=== PATIENT | female | born 2000 | race American Indian/Alaskan Native ===

== ENCOUNTER 2022-02-26 22:13 | Emergency (ER) | payer SELFPAY ==
[2022-02-27] MEDS ORDERED: predniSONE 20 MG TAB PO NR (03:25)
[2022-02-27] MEDS ORDERED: ACETAMINOPHEN 500 MG TAB PO NR (03:25)
--- NOTE | 2022-02-27 03:30 | Emergency Department Report ---
- General Chief Complaint: Chest Pain Stated Complaint: SOB/ALLERGIES Source: patient Mode of arrival: Ambulatory Limitations: No Limitations - History of Present Illness Initial Comments: Patient is a nulliparous 21-year-old -Spanish female with a history of asthma and morbid obesity presents to the ED with complaint of acute onset persistent nasal and sinus congestion, frontal sinus pressure, persistent cough with intermittent yellowish-white phlegm and chest tightness with intermittent wheezing for the last 1 week. Patient states that the symptoms have been persistent and especially worse at night when she lays down to sleep. Patient states that she occasionally uses a sisters albuterol inhaler which appeared to help. Patient denies dizziness, syncope, chest pain, nausea and vomiting, diarrhea, dysuria, urinary frequency and urgency, sore throat, headache or back pain. MD Complaint: cough, rhinorrhea, nasal congestion, sinus pain -: Sudden, week(s) (1) Severity: moderate Severity scale (0 -10): 5 Quality: dull, aching Consistency: intermittent Improves With: nothing Worsens With: nothing Context: sick contacts Associated Symptoms: denies other symptoms, rhinorrhea, nasal congestion, cough. denies: fever, chills, diaphoresis, headache, sore throat, stiff neck, chest pain, shortness of breath, abdominal pain, nausea, vomiting, diarrhea, dysuria, rash, confusion, weight loss Treatments Prior to Arrival: "cold medicine" - Related Data Previous Rx's Medication Instructions Recorded Last Taken Type Albuterol Sulfate [Proventil Hfa] 1 - 2 puff IH Q6H PRN #1 inh 02/27/22 Unknown Rx Azithromycin [Zithromax Z-RICHARD] 250 mg PO DAILY #6 tab 02/27/22 Unknown Rx Benzonatate [Tessalon Perles] 100 mg PO Q8HR #30 cap 02/27/22 Unknown Rx Cetirizine HCl [Zyrtec 10mg tab] 10 mg PO DAILY #30 tab 02/27/22 Unknown Rx Ferrous Sulfate [Ferrous Sulfate 324 mg PO DAILY #60 tab 02/27/22 Unknown Rx 324 MG] Ondansetron [Zofran Odt] 4 mg PO Q8HR PRN #20 tab.rapdis 02/27/22 Unknown Rx predniSONE [Deltasone] 40 mg PO QDAY #10 tab 02/27/22 Unknown Rx ED Review of Systems ROS: Stated complaint: SOB/ALLERGIES Other details as noted in HPI Constitutional: denies: chills, fever Eyes: denies: eye pain, eye discharge, vision change ENT: congestion. denies: ear pain, throat pain Respiratory: cough, shortness of breath, wheezing Cardiovascular: denies: chest pain, palpitations Endocrine: no symptoms reported Gastrointestinal: denies: abdominal pain, nausea, diarrhea Genitourinary: denies: urgency, dysuria, discharge Musculoskeletal: denies: back pain, joint swelling, arthralgia Skin: denies: rash, lesions Neurological: denies: headache, weakness, paresthesias Psychiatric: denies: anxiety, depression Hematological/Lymphatic: denies: easy bleeding, easy bruising ED Past Medical Hx - Past Medical History Hx Asthma: Yes - Social History Smoking Status: Never Smoker Substance Use Type: None - Medications Home Medications: Home Medications Medication Instructions Recorded Confirmed Last Taken Type Albuterol Sulfate [Proventil Hfa] 1 - 2 puff IH Q6H PRN #1 inh 02/27/22 Unknown Rx Azithromycin [Zithromax Z-RICHARD] 250 mg PO DAILY #6 tab 02/27/22 Unknown Rx Benzonatate [Tessalon Perles] 100 mg PO Q8HR #30 cap 02/27/22 Unknown Rx Cetirizine HCl [Zyrtec 10mg tab] 10 mg PO DAILY #30 tab 02/27/22 Unknown Rx Ferrous Sulfate [Ferrous Sulfate 324 mg PO DAILY #60 tab 02/27/22 Unknown Rx 324 MG] Ondansetron [Zofran Odt] 4 mg PO Q8HR PRN #20 tab.rapdis 02/27/22 Unknown Rx predniSONE [Deltasone] 40 mg PO QDAY #10 tab 02/27/22 Unknown Rx ED Physical Exam - General Limitations: No Limitations General appearance: alert, in no apparent distress - Head Head exam: Present: atraumatic, normocephalic, normal inspection - Eye Eye exam: Present: normal appearance, PERRL, EOMI Pupils: Present: normal accommodation - ENT ENT exam: Present: normal orophraynx, mucous membranes moist, TM's normal bilaterally, normal external ear exam, other (Grossly congested nasal passages; palpable frontal sinus tenderness) - Neck Neck exam: Present: normal inspection, full ROM. Absent: tenderness - Respiratory Respiratory exam: Present: normal lung sounds bilaterally. Absent: respiratory distress, wheezes, rales, rhonchi, chest wall tenderness, accessory muscle use, decreased breath sounds, prolonged expiratory - Cardiovascular Cardiovascular Exam: Present: regular rate, normal rhythm, normal heart sounds. Absent: systolic murmur, diastolic murmur, rubs, gallop - GI/Abdominal GI/Abdominal exam: Present: soft, normal bowel sounds. Absent: tenderness, guarding, rebound, hyperactive bowel sounds, hypoactive bowel sounds, organomegaly - Extremities Exam Extremities exam: Present: normal inspection, full ROM, normal capillary refill. Absent: tenderness - Back Exam Back exam: Present: normal inspection, full ROM. Absent: tenderness, CVA tenderness (R), CVA tenderness (L), muscle spasm, paraspinal tenderness, vertebral tenderness - Neurological Exam Neurological exam: Present: alert, oriented X3, CN II-XII intact, normal gait, reflexes normal - Psychiatric Psychiatric exam: Present: normal affect, normal mood - Skin Skin exam: Present: warm, dry, intact, normal color. Absent: rash ED Medical Decision Making - Medical Decision Making This is a nulliparous 21-year-old -Spanish female with a history of asthma and morbid obesity presents to the ED with complaint of acute onset persistent nasal and sinus congestion, frontal sinus pressure, persistent cough with intermittent yellowish-white phlegm and chest tightness with intermittent wheezing for the last 1 week. Patient states that the symptoms have been persistent and especially worse at night when she lays down to sleep. Patient states that she occasionally uses a sisters albuterol inhaler which appeared to help. In the ED, patient is alert and oriented x3 and is not in any distress. Patient is hemodynamically stable. Patient was treated for pain and also given oral prednisone 60 mg p.o. x1. Patient was discharged home on medications and advised to follow-up with her primary care physician in 7 to 10 days for reevaluation or return to the ED immediately if symptoms get worse. - Differential Diagnosis URI; bronchitis; rhinitis; asthma; sinusitis; pneumonia Critical care attestation.: If time is entered above; I have spent that time in minutes in the direct care of this critically ill patient, excluding procedure time. ED Disposition Clinical Impression: Acute upper respiratory infection, Acute bronchitis with asthma with acute exacerbation, Acute allergic rhinitis Disposition: HOME / SELF CARE / HOMELESS Is pt being admited?: No Does the pt Need Aspirin: No Condition: Stable Instructions: Upper Respiratory Infection, Adult, [id number], Cough, Adult, [id number], Acute Bronchitis, Adult, [id number], Asthma, Adult, [id number], Allergic Rhinitis, Adult, [id number] Additional Instructions: Take medication with food, drink plenty of fluids and follow-up with your primary care physician in 7 to 10 days for reevaluation. Return to the ED immediately if symptoms get worse. Prescriptions: predniSONE [Deltasone] 40 mg PO QDAY #10 tab Ferrous Sulfate [Ferrous Sulfate 324 MG] 324 mg PO DAILY #60 tab Albuterol Sulfate [Proventil Hfa] 1 - 2 puff IH Q6H PRN #1 inh PRN Reason: Shortness Of Breath Benzonatate [Tessalon Perles] 100 mg PO Q8HR #30 cap Azithromycin [Zithromax Z-RICHARD] 250 mg PO DAILY #6 tab Ondansetron [Zofran Odt] 4 mg PO Q8HR PRN #20 tab.rapdis PRN Reason: Nausea Cetirizine HCl [Zyrtec 10mg tab] 10 mg PO DAILY #30 tab Referrals: [facility] [Provider Group] - 7-10 days Forms: Work/School Release Form(ED) Time of Disposition: 03:31 Print Language: CITIZEN OF [place]
[2022-02-27 04:01] VITALS: BP 151/89
== END 2022-02-27 05:06 | disposition home or self-care (01) ==
LOC: ED 22:13
DX: J06.9 Acute upper respiratory infection, unspecified (principal); J45.901 Unspecified asthma with (acute) exacerbation; J30.9 Allergic rhinitis, unspecified; Z79.899 Other long term (current) drug therapy
CPT/HCPCS: 99282

== ENCOUNTER 2022-05-06 23:15 | Emergency (ER) | payer SELFPAY ==
[2022-05-07] MEDS ORDERED: ALBUTEROL 2.5 MG/3 ML NEBU IH ONE (08:45)
[2022-05-07] MEDS ORDERED: predniSONE 20 MG TAB PO ONE (08:45)
--- NOTE | 2022-05-07 09:15 | Emergency Department Report ---
Minor Respiratory - HPI Chief Complaint: Upper Respiratory Infection Stated Complaint: [place]/ALLERGIES & ASTHMA Time Seen by Provider: 05/07/22 08:45 Duration: 3 Days Pain Location: Chest Severity: mild Minor Respiratory: Yes Able to Tolerate Fluids, Yes Cough, Yes Shortness of Breath (With wheezing), No Rhinorrhea, No Sore Throat, No Ear Pain, No Sick Contacts, No Hemoptysis, No Chest Pain, No Fever Other History: Patient is a 21-year-old female that comes to the emergency room complaining of cough and congestion for 3 days. Patient does have asthma. No fever or chills. No purulent sputum. Patient has not seen her primary care doctor. She is immunized for COVID. ED Review of Systems ROS: Stated complaint: [place]/ALLERGIES & ASTHMA Other details as noted in HPI Comment: All other systems reviewed and negative ED Past Medical Hx - Past Medical History Previous Medical History?: Yes Hx Asthma: Yes - Surgical History Past Surgical History?: No - Family History Family history: no significant - Social History Smoking Status: Never Smoker Substance Use Type: None - Medications Home Medications: Home Medications Medication Instructions Recorded Confirmed Last Taken Type Albuterol Sulfate [Proventil Hfa] 1 - 2 puff IH Q6H PRN #1 inh 02/27/22 Unknown Rx Cetirizine HCl [Zyrtec 10mg tab] 10 mg PO DAILY #30 tab 02/27/22 Unknown Rx Ferrous Sulfate [Ferrous Sulfate 324 mg PO DAILY #60 tab 02/27/22 Unknown Rx 324 MG] ALBUTEROL NEB's [Proventil 0.083% 2.5 mg IH TID PRN #1 box 05/07/22 Unknown Rx NEBS] Albuterol Mdi (or & Nicu Only) 2 puff IH QID PRN #1 inhalation 05/07/22 Unknown Rx [ProAir HFA Inhaler] Cetirizine HCl [ZyrTEC] 10 mg PO DAILY #30 capsule 05/07/22 Unknown Rx Fluticasone [Flonase] 1 spray NS QDAY #1 bottle 05/07/22 Unknown Rx predniSONE [Deltasone] 20 mg PO DAILY #5 tablet 05/07/22 Unknown Rx Minor Respiratory Exam - Exam General: Vital signs noted. No distress. Alert and acting appropriately. HEENT: Yes Moist Mucous Membranes, No Pharyngeal Erythema, No Pharyngeal Exudates, No Rhinorrhea, No Conjuctival Injection, No Frontal Tenderness, No Maxillary Tenderness Ear: Neither TM Bulge, Neither TM Erythema, Neither EAC Pain, Neither EAC Discharge Neck: Yes Supple, No Adenopathy Lungs: Yes Good Air Exchange, Yes Wheezes, No Ronchi, No Stridor, No Cough, No Labored Respirations, No Retractions, No Use of Accessory Muscles, No Other Abnormal Lung Sounds Heart: Yes Regular, No Murmur Abdomen: Yes Normal Bowel Sounds, No Tenderness, No Peritoneal Signs Skin: No Rash, No Edema Neurologic: Alert and oriented, no deficits. Musculoskeletal: Unremarkable. ED Course Vital Signs 05/06/22 23:37 Temperature 98.4 F Pulse Rate 58 L Respiratory 18 Rate Blood Pressure 126/75 O2 Sat by Pulse 97 Oximetry ED Medical Decision Making - Radiology Data Radiology results: report reviewed, image reviewed NAP - Medical Decision Making Vital Signs 05/06/22 23:37 Temperature 98.4 F Pulse Rate 58 L Respiratory 18 Rate Blood Pressure 126/75 O2 Sat by Pulse 97 Oximetry DUONEB/PRED IN ER XRAY NAP DC HOME WITH DC PLAN OF CARE INCLUDING DIET, ACTIVITY, MEDS AND FOLLOW UP. PT VERBALIZES UNDERSTANDING OF PLAN OF CARE - Differential Diagnosis RO PNA Critical care attestation.: If time is entered above; I have spent that time in minutes in the direct care of this critically ill patient, excluding procedure time. ED Disposition Clinical Impression: Asthma with acute exacerbation Qualifiers: Asthma severity: mild Asthma persistence: intermittent Qualified Code(s): J45.21 - Mild intermittent asthma with (acute) exacerbation Disposition: 01 HOME / SELF CARE / HOMELESS Is pt being admited?: No Does the pt Need Aspirin: No Condition: Stable Instructions: Asthma, Adult Additional Instructions: MEDS ORDERED Prescriptions: predniSONE [Deltasone] 20 mg PO DAILY #5 tablet Fluticasone [Flonase] 1 spray NS QDAY #1 bottle Albuterol Mdi (or & Nicu Only) [ProAir HFA Inhaler] 2 puff IH QID PRN #1 inhalation PRN Reason: Shortness Of Breath ALBUTEROL NEB's [Proventil 0.083% NEBS] 2.5 mg IH TID PRN #1 box PRN Reason: Wheezing Cetirizine HCl [ZyrTEC] 10 mg PO DAILY #30 capsule Referrals: PRIMARY CARE, [Primary Care Provider] - 3-5 Days CHAPIN PEREZ MD [Staff Physician] - 3-5 Days Forms: Work/School Release Form(ED) Time of Disposition: 09:18
--- NOTE | 2022-05-07 09:42 | XRay Report ---
CHEST 2 VIEWS INDICATION / CLINICAL INFORMATION: SOB. COMPARISON: None available. FINDINGS: SUPPORT DEVICES: None. HEART / MEDIASTINUM: No significant abnormality. LUNGS / PLEURA: No significant pulmonary or pleural abnormality. No pneumothorax. ADDITIONAL FINDINGS: No significant additional findings. IMPRESSION: 1. No acute findings. Signer Name: Bobby Baum MD Signed: 05/07/2022 9:37 AM Workstation Name: [id number]
[2022-05-07 09:43] VITALS: BP 126/70
== END 2022-05-07 09:38 | disposition home or self-care (01) ==
LOC: ED 23:15
DX: J45.901 Unspecified asthma with (acute) exacerbation (principal)
CPT/HCPCS: 71046; 94640; 99283